=== PATIENT | female | born 1975 | race Caucasian/White ===

== ENCOUNTER 2016-05-12 14:07 | Emergency (ER) | payer MEDICAID ==
[~2016-05-12] VITALS: Wt 68.0 kg
[~2016-05-12 14:07] MED LIST: ACET1TAB40 PO; ACYC800T57 PO; AZIT250T94 PO; CIPR500T4 PO; DICY20TA59 PO; HYDR-3498 PO; HYDR-3720 PO; IBUP-1542 PO; KENC1 TOP; NAPR-260 PO; PHEN177S43 MT; PROM5SYR2 PO; RANI150T9 PO; ULT50 PO
[2016-05-12] MEDS ORDERED: BACTDS PO (16:24)
[2016-05-12] MEDS ORDERED: IBUP-1542 PO (16:24)
[2016-05-12] MEDS ORDERED: CEPH-443 PO (16:24)
[2016-05-12 16:31] VITALS: BP 119/73; PULSE 75; RESP 17; TEMP 98.2
--- NOTE | 2016-05-12 16:36 | ERD ---
ER Documentation Chief Complaint Date/Time DATE: 05/12/16 TIME: 16:27 Chief Complaint LEFT FINGER INSECT BITE RED AND SWOLLEN .NO FEVERS HPI 41-year-old female with no significant past medical history presents to the ED complaining of a insect bite that occurred on the dorsal aspect of her left fourth finger that started 5 days ago. States that she was trying to move boxes outside and is unsure what exactly bit her. States that it started to become swollen and red. States that hurts to move her left finger. Reports that she has been applying warm compresses. Denies any fever, chills, abdominal pain, nausea, vomiting, loss of sensation. Denies any exposure to pets, use of creams or detergents. ROS All systems reviewed and are negative except as per history of present illness. Medications Home Meds Active Scripts Hydrocodone/Acetaminophen ([place] 5-325 Tablet) 1 Each Tablet, 1 TAB PO Q6H Y for PAIN, #20 TAB Prov:THOMAS MOORE PA-C 05/14/16 Sulfamethoxazole-Trimethoprim* (Bactrim* DS) 800-160 Mg Tab, 1 TAB PO BID for 7 Days, TAB Prov:RANJIT DEL VALLE PA-C 05/12/16 Cephalexin* (Keflex*) 500 Mg Capsule, 500 MG PO QID for 7 Days, CAP Prov:RANJIT DEL VALLE PA-C 05/12/16 Ibuprofen* (Motrin*) 600 Mg Tab, 600 MG PO Q6, #30 TAB Prov:RANJIT DEL VALLE PA-C 05/12/16 Promethazine HCl/Codeine (Prometh-Codein 6.25-10 mg/5 ml) 5 Ml Syrup, 5 ML PO Q8 , #8 OZ Prov:VIVIANE LIEBERMAN DO 04/15/16 Phenol* (Chloraseptic* [place]) 177 Ml [place].pump, 2 SPRAY MT Q2H Y for SORE THROAT, #1 BOTTLE Prov:LUISANAVIVIANE 04/15/16 Naproxen* (Naprosyn*) 500 Mg Tablet, 500 MG PO BID Y for PAIN AND/OR INFLAMMATION, #15 TAB Prov:LUISANAVIVIANE DO 04/15/16 Tramadol HCl (Tramadol HCl) 50 Mg Tablet, 50 MG PO Q4 Y for PAIN, #20 TAB Prov:DOMINICK COLMENARES MD 11/23/15 Ibuprofen* (Motrin*) 600 Mg Tab, 600 MG PO Q6, #20 TAB Prov:DOMINICK COLMENARES MD 11/23/15 Azithromycin* (Zithromax*) 250 Mg Tablet, 250 MG PO .ZPACK DIRECTED, #6 TAB TAKE 500 MG (2 TABS) THE FIRST DAY THEN 250 MG (1 TAB) DAYS 2-5 Prov:SANTOS LU PA-C 09/25/15 Hydrocodone Bit-Acetaminophen* ([place]*) 5-325 Mg Tab, 1 TAB PO Q6 Y for PAIN, # 10 TAB Prov:SANTOS LU PA-C 09/25/15 Hydrocodone Bit-Acetaminophen* ([place]*) 7.5-325 Tablet, 1 TAB PO Q4H Y for PAIN , #20 TAB Prov:YASMINE GARCIA DO 09/22/15 Ranitidine Hcl* (Zantac*) 150 Mg Tablet, 150 MG PO BID Y for EPIGASTRIC PAIN, # 30 TAB Prov:YASMINE GARCIA DO 09/22/15 Dicyclomine Hcl* (Bentyl*) 20 Mg Tablet, 20 MG PO QID, #30 TAB Prov:YASMINE GARCIA DO 09/22/15 Ciprofloxacin Hcl* (Ciprofloxacin Hcl*) 500 Mg Tablet, 500 MG PO BID for 7 Days , TAB Prov:MEDINA HOLLAND PA-C 03/27/15 Triamcinolone Acetonide (Triamcinolone Acetonide) 0.1% - 15 Gm Cream.gm., 1 APPLIC TOP TID for 7 Days, TUB Prov:DOMINICK COLMENARES MD 01/01/15 Acyclovir* (Zovirax*) 800 Mg Tablet, 800 MG PO TID for 7 Days, TAB Prov:DOMINICK COLMENARES MD 01/01/15 Acetaminophen-Codeine* (Acetaminophen-Cod #3*) 300-30 Mg Tab, 1 TAB PO Q4H Y for PAIN, #14 TAB Prov:DOMINICK COLMENARES MD 01/01/15 Allergies Allergies: Coded Allergies: No Known Allergy (Verified , 04/15/16) PMhx/Soc History of Surgery: Yes (POLYPS) Anesthesia Reaction: No Hx Neurological Disorder: No Hx Respiratory Disorders: No Hx Cardiac Disorders: No Hx Psychiatric Problems: No Hx Miscellaneous Medical Probl: Yes (FIBROIDS) Hx Alcohol Use: No Hx Substance Use: No Hx Tobacco Use: No Smoking Status: Never smoker Physical Exam Vitals Vital Signs Date Time Temp Pulse Resp B/P Pulse Ox O2 Delivery O2 Flow Rate FiO2 05/12/16 16:31 98.2 75 17 119/73 100 Room Air 05/12/16 14:18 98.2 82 20 134/81 99 Physical Exam Const: [id number], well-nourished. In no acute distress. Head: Atraumatic, normocephalic Eyes: Normal Conjunctiva without injection ENT: Normal external ear, nose and mouth. Neck: Full range of motion. No meningismus. Resp: Clear to auscultation bilaterally. No wheezing, rhonchi, rales, or crackles. No accessory muscle use. No retractions. Cardio: Regular rate and rhythm, no murmurs Skin: No petechiae or rashes. Slight tenderness to palpation of the insect bite noted on the dorsal aspect in between the MCP and PIP joint of the left fourth finger. No fluctuance or induration noted. Slightly warm to touch and erythematous. No lymphatic streaking. Back: No midline tenderness. No CVA tenderness. Ext: No cyanosis, or edema. No tenderness to palpation of the PIP, DIP, MCP joints of the bilateral hands. Cap refill less than 2 seconds. Distal pulses intact bilaterally. Neur: Awake and alert. Normal gait and coordination. Muscle strength 5/5. Sensation intact bilaterally. Psych: Normal Mood and Affect Procedures/MDM 41-year-old female with no significant past medical history presents the ED complaining of an infected insect bite that occurred in between her fourth middle finger. Patient is afebrile and nontoxic-appearing. Patient has normal vital signs. Patient's insect bite is likely infected however there is no current abscess noted. There is no fluctuance or induration. There is slight erythema surrounding the area. Patient is appropriate for outpatient management. Low suspicion for allergic contact dermatitis, urticaria, cutaneous candidiasis, eczema, scabies, tinea infection, erythema multiforme, SJS, TEN, sepsis, cellulitis, necrotizing fascitis, or other emergent conditions. Discharge medications: Bactrim, Keflex, Ibuprofen Follow up with primary care physician in 1-2 days. Instructed patient to return to the ED sooner for any worsening symptoms. Patient's questions were answered. Patient understood and agreed with discharge plan. Patient discharged stable. Departure Diagnosis: Primary Impression: Infected insect bite of finger Encounter type: initial encounter Qualified Code: S60.469A - Infected insect bite of finger, initial encounter Condition: Stable Patient Instructions: Insect Sting/Bite, Infected Referrals: [facility] YOU HAVE RECEIVED A MEDICAL SCREENING EXAM AND THE RESULTS INDICATE THAT YOU DO NOT HAVE A CONDITION THAT REQUIRES URGENT TREATMENT IN THE EMERGENCY DEPARTMENT. FURTHER EVALUATION AND TREATMENT OF YOUR CONDITION CAN WAIT UNTIL YOU ARE SEEN IN YOUR DOCTORS OFFICE WITHIN THE NEXT 1-2 DAYS. IT IS YOUR RESPONSIBILITY TO MAKE AN APPOINTMENT FOR FOLOW-UP CARE. IF YOU HAVE A PRIMARY DOCTOR --you should call your primary doctor and schedule an appointment IF YOU DO NOT HAVE A PRIMARY DOCTOR YOU CAN CALL OUR PHYSICIAN REFERRAL HOTLINE AT IF YOU CAN NOT AFFORD TO SEE A PHYSICIAN YOU CAN CHOSE FROM THE FOLLOWING [facility] [address] [facility]. [facility] [address] [facility]. [facility] [address] [facility] [address] [facility] [address] [facility]. [facility]. [address] [facility]. [facility] YOU HAVE RECEIVED A MEDICAL SCREENING EXAM AND THE RESULTS INDICATE THAT YOU DO NOT HAVE A CONDITION THAT REQUIRES URGENT TREATMENT IN THE EMERGENCY DEPARTMENT. FURTHER EVALUATION AND TREATMENT OF YOUR CONDITION CAN WAIT UNTIL YOU ARE SEEN IN YOUR DOCTORS OFFICE WITHIN THE NEXT 1-2 DAYS. IT IS YOUR RESPONSIBILITY TO MAKE AN APPOINTMENT FOR FOLOW-UP CARE. IF YOU HAVE A PRIMARY DOCTOR --you should call your primary doctor and schedule and appointment IF YOU DO NOT HAVE A PRIMARY DOCTOR YOU CAN CALL OUR PHYSICIAN REFERRAL HOTLINE AT . IF YOU CAN NOT AFFORD TO SEE A PHYSICIAN YOU CAN CHOSE FROM THE FOLLOWING [facility]: [facility] [address] [place] [address] [facility] [address] [place] [address] [facility] + [facility] [address] [place] [address] [facility]CIALT[facility] Additional Instructions: Seguimiento con mdico de diamante en 2 calderon para yesenia revisin de la herida Regrese a estas instalaciones si no se mejora angelica esperbamos o angelica le dijimos. RANJIT DEL VALLE PA-C May 12, 2016 16:36
== END 2016-05-12 16:33 | disposition home or self-care (01) ==
LOC: FTE 14:07
DX: S60.465A Insect bite (nonvenomous) of left ring finger, initial encounter (principal); W57.XXXA Bitten or stung by nonvenomous insect and other nonvenomous arthropods, initial encounter; Y92.9 Unspecified place or not applicable
CPT/HCPCS: 99284

== ENCOUNTER 2016-05-14 14:47 | Emergency (ER) | payer MEDICAID ==
[~2016-05-14] VITALS: Ht 162.6 cm; Wt 66.0 kg
[~2016-05-14 14:47] MED LIST changes: +BACTDS PO; +CEPH-443 PO
[2016-05-14 15:05] VITALS: Ht 162.6 cm; Wt 66.0 kg
[2016-05-14] MEDS ORDERED: HYDR-906 PO (18:01)
--- NOTE | 2016-05-14 18:06 | ERD ---
ER Documentation Chief Complaint Date/Time DATE: 05/14/16 TIME: 18:03 Chief Complaint re check for insect bite HPI Patient is a 41-year-old female who is here for an abscess on her left fourth digit. She was seen here 2 days ago was given antibiotics however it has not gotten any better. She denies any fever bleeding or drainage. Pain 10 throbbing in the finger. Denies any numbness or tingling. ROS All systems reviewed and are negative except as per history of present illness. Medications Home Meds Active Scripts Hydrocodone/Acetaminophen ([place] 5-325 Tablet) 1 Each Tablet, 1 TAB PO Q6H Y for PAIN, #20 TAB Prov:THOMAS MOORE PA-C 05/14/16 Sulfamethoxazole-Trimethoprim* (Bactrim* DS) 800-160 Mg Tab, 1 TAB PO BID for 7 Days, TAB Prov:RANJIT DEL VALLE PA-C 05/12/16 Cephalexin* (Keflex*) 500 Mg Capsule, 500 MG PO QID for 7 Days, CAP Prov:RANJIT DEL VALLE PA-C 05/12/16 Ibuprofen* (Motrin*) 600 Mg Tab, 600 MG PO Q6, #30 TAB Prov:RANJIT DEL VALLE PA-C 05/12/16 Promethazine HCl/Codeine (Prometh-Codein 6.25-10 mg/5 ml) 5 Ml Syrup, 5 ML PO Q8 , #8 OZ Prov:VIVIANE LIEBERMAN DO 04/15/16 Phenol* (Chloraseptic* [place]) 177 Ml [place].pump, 2 SPRAY MT Q2H Y for SORE THROAT, #1 BOTTLE Prov:VIVIANE LIEBERMAN DO 04/15/16 Naproxen* (Naprosyn*) 500 Mg Tablet, 500 MG PO BID Y for PAIN AND/OR INFLAMMATION, #15 TAB Prov:VIVIANE LIEBERMAN DO 04/15/16 Tramadol HCl (Tramadol HCl) 50 Mg Tablet, 50 MG PO Q4 Y for PAIN, #20 TAB Prov:DOMINICK COLMENARES MD 11/23/15 Ibuprofen* (Motrin*) 600 Mg Tab, 600 MG PO Q6, #20 TAB Prov:DOMINICK COLMENARES MD 11/23/15 Azithromycin* (Zithromax*) 250 Mg Tablet, 250 MG PO .GAURANG DIRECTED, #6 TAB TAKE 500 MG (2 TABS) THE FIRST DAY THEN 250 MG (1 TAB) DAYS 2-5 Prov:SANTOS LU PA-C 09/25/15 Hydrocodone Bit-Acetaminophen* ([place]*) 5-325 Mg Tab, 1 TAB PO Q6 Y for PAIN, # 10 TAB Prov:SANTOS LU PA-C 09/25/15 Hydrocodone Bit-Acetaminophen* ([place]*) 7.5-325 Tablet, 1 TAB PO Q4H Y for PAIN , #20 TAB Prov:KERI GARCIASTASHLEY Cohen DO 09/22/15 Ranitidine Hcl* (Zantac*) 150 Mg Tablet, 150 MG PO BID Y for EPIGASTRIC PAIN, # 30 TAB Prov:YASMINE GARCIA AArlene DO 09/22/15 Dicyclomine Hcl* (Bentyl*) 20 Mg Tablet, 20 MG PO QID, #30 TAB Prov:YASMINE GARCIA DO 09/22/15 Ciprofloxacin Hcl* (Ciprofloxacin Hcl*) 500 Mg Tablet, 500 MG PO BID for 7 Days , TAB Prov:MEDINA HOLLAND PA-C 03/27/15 Triamcinolone Acetonide (Triamcinolone Acetonide) 0.1% - 15 Gm Cream.gm., 1 APPLIC TOP TID for 7 Days, TUB Prov:DOMINICK COLMENARES MD 01/01/15 Acyclovir* (Zovirax*) 800 Mg Tablet, 800 MG PO TID for 7 Days, TAB Prov:DOMINICK COLMENARES MD 01/01/15 Acetaminophen-Codeine* (Acetaminophen-Cod #3*) 300-30 Mg Tab, 1 TAB PO Q4H Y for PAIN, #14 TAB Prov:DOMINICK COLMENARES MD 01/01/15 Allergies Allergies: Coded Allergies: No Known Allergy (Verified , 04/15/16) PMhx/Soc Medical and Surgical Hx: pt denies Medical Hx, pt denies Surgical Hx History of Surgery: Yes Anesthesia Reaction: No Hx Neurological Disorder: No Hx Respiratory Disorders: No Hx Cardiac Disorders: No Hx Psychiatric Problems: No Hx Miscellaneous Medical Probl: Yes (FIBROIDS) Hx Alcohol Use: No Hx Substance Use: No Hx Tobacco Use: No Smoking Status: Never smoker FmHx Family History: No diabetes Physical Exam Vitals Vital Signs Date Time Temp Pulse Resp B/P Pulse Ox O2 Delivery O2 Flow Rate FiO2 05/14/16 15:05 98.2 93 19 114/74 98 Physical Exam General: well developed, well nourished, alert, nontoxic, no distress Head: normocephalic, atraumatic Neck: Supple, nontender, no lymphadenopathy, no midline tenderness Respiratory: Clear to auscaultation bilaterally, speaks in full sentences, no use of accesory muscles or labored breathing, no rales, ronchi, or wheezing Cardiovascular: RRR, No murmurs Extremities: moving all extremities normally, normal gait, no edema Skin: Abscess formation on the left fourth digit dorsal surface between the DIP and PIP joints with fluctuance Procedures/MDM 41-year-old female is here with abscess on his finger. The area was cleaned and prepped with Betadine. 1% plain lidocaine was used to anesthetize the finger proximally 2 mL. Small incision using an 11 blade was then made and copious purulent drainage was drained. Patient tolerated the procedure well and there are no complications a she was discharged with prescription for [place] and I recommended she continue to take the antibiotics as prescribed.Recommended this patient follow up with her primary care doctor within 48 hours or return to the emergency room for any worsening of symptoms. However this time I do believe there is suitable for outpatient management. I answered all their questions and they agreed with the plan and were discharged home. Departure Diagnosis: Primary Impression: Abscess Condition: Stable Patient Instructions: Abscess, Incision And Drainage Additional Instructions: Call your primary care doctor TOMORROW for an appointment during the next 1-2 days.See the doctor sooner or return here if your condition worsens before your appointment time. THOMAS MOORE PA-C May 14, 2016 18:06
== END 2016-05-14 18:30 | disposition home or self-care (01) ==
LOC: FTE 14:47
DX: L02.512 Cutaneous abscess of left hand (principal)
CPT/HCPCS: 26010; Z7502

== ENCOUNTER 2016-07-04 09:54 | Emergency (ER) | payer MEDICAID ==
[~2016-07-04] VITALS: Wt 63.0 kg
[~2016-07-04 09:54] MED LIST changes: +HYDR-906 PO; +TRAM50TA2 PO; -ULT50 PO
[2016-07-04] MEDS ORDERED: ONDANSETRON 4 MG INJ IV STA (11:52)
[2016-07-04] MEDS ORDERED: morphine 4 MG/ML VIAL IV STA (11:52)
[2016-07-04 12:14] LABS: ADD SCAN DIFF NO
[2016-07-04 12:24] LABS: BASOPHILS % 0.4 % (0.0-2.0); EOSINOPHILS # 0.1 10^3/ul (0.0-0.5); EOSINOPHILS % 0.9 % (0.0-7.0); HEMATOCRIT 39.2 % (37.0-47.0); HEMOGLOBIN 13.3 g/dl (12.0-16.0); LYMPHOCYTES # 1.6 10^3/ul (0.8-2.9); LYMPHOCYTES % 30.2 % (15.0-51.0); MEAN CORPUSCULAR HEMOGLOBIN 32.2 pg (29.0-33.0); MEAN CORPUSCULAR HGB CONC 33.9 g/dl (32.0-37.0); MEAN CORPUSCULAR VOLUME 94.9 fl (82.0-101.0); MEAN PLATELET VOLUME 11.6 fl (7.4-10.4); MONOCYTE # 0.4 10^3/ul (0.3-0.9); MONOCYTES % 6.7 % (0.0-11.0); NEUTROPHIL # 3.3 10^3/ul (1.6-7.5); NEUTROPHILS % 61.4 % (39.0-77.0); PLATELET COUNT 198 10^3/UL (140-415); RED BLOOD COUNT 4.13 10^6/ul (4.20-5.40); RED CELL DISTRIBUTION WIDTH 12.5 % (11.5-14.5); WHITE BLOOD COUNT 5.4 10^3/ul (4.8-10.8)
[2016-07-04 12:28] LABS: ALBUMIN 4.1 g/dl (3.3-4.9)
[2016-07-04 12:29] LABS: POTASSIUM 3.7 mmol/L (3.5-5.1)
[2016-07-04 12:31] LABS: BILIRUBIN,INDIRECT 0.3 mg/dl (0-1.1); BILIRUBIN,TOTAL 0.3 mg/dl (0.2-1.3); CREATININE 0.61 mg/dl (0.44-1.00)
[2016-07-04 12:32] LABS: ALBUMIN/GLOBULIN RATIO 1.24; CALCIUM 8.9 mg/dl (8.4-10.2); TOTAL PROTEIN 7.4 g/dl (6.1-8.1)
--- NOTE | 2016-07-04 12:35 | ERD ---
ER Documentation Chief Complaint Date/Time DATE: 07/04/16 TIME: 12:33 Chief Complaint RIGHT UPPER QUAD ABD PAIN FOR 3 DAYS. N/V. NO DIARRHEA HPI 41-year-old female complains of right-sided flank pain that radiates to right upper quadrant for the past 3 days. She states that she has had generalized fatigue. Reports nausea however no vomiting. Denies fevers or chills. ROS All systems reviewed and are negative except as per history of present illness. Medications Home Meds Active Scripts Tramadol HCl (Tramadol HCl) 50 Mg Tablet, 50 MG PO Q4 Y for PAIN, #10 TAB Prov:SANTOS LU PA-C 07/04/16 Hydrocodone/Acetaminophen ([place] 5-325 Tablet) 1 Each Tablet, 1 TAB PO Q6H Y for PAIN, #20 TAB Prov:THOMAS MOORE PA-C 05/14/16 Sulfamethoxazole-Trimethoprim* (Bactrim* DS) 800-160 Mg Tab, 1 TAB PO BID for 7 Days, TAB Prov:RANJIT DEL VALLE PA-C 05/12/16 Cephalexin* (Keflex*) 500 Mg Capsule, 500 MG PO QID for 7 Days, CAP Prov:RANJIT DEL VALLE PA-C 05/12/16 Ibuprofen* (Motrin*) 600 Mg Tab, 600 MG PO Q6, #30 TAB Prov:RANJIT DEL VALLE PA-C 05/12/16 Promethazine HCl/Codeine (Prometh-Codein 6.25-10 mg/5 ml) 5 Ml Syrup, 5 ML PO Q8 , #8 OZ Prov:VIVIANE LIEBERMAN DO 04/15/16 Phenol* (Chloraseptic* [place]) 177 Ml [place].pump, 2 SPRAY MT Q2H Y for SORE THROAT, #1 BOTTLE Prov:VIVIANE LIEBERMAN DO 04/15/16 Naproxen* (Naprosyn*) 500 Mg Tablet, 500 MG PO BID Y for PAIN AND/OR INFLAMMATION, #15 TAB Prov:VIVIANE LIEBERMAN DO 04/15/16 Tramadol HCl (Tramadol HCl) 50 Mg Tablet, 50 MG PO Q4 Y for PAIN, #20 TAB Prov:DOMINICK COLMENARES MD 11/23/15 Ibuprofen* (Motrin*) 600 Mg Tab, 600 MG PO Q6, #20 TAB Prov:DOMINICK COLMENARES MD 11/23/15 Azithromycin* (Zithromax*) 250 Mg Tablet, 250 MG PO .BRANDICK DIRECTED, #6 TAB TAKE 500 MG (2 TABS) THE FIRST DAY THEN 250 MG (1 TAB) DAYS 2-5 Prov:SANTOS LU PA-C 09/25/15 Hydrocodone Bit-Acetaminophen* ([place]*) 5-325 Mg Tab, 1 TAB PO Q6 Y for PAIN, # 10 TAB Prov:ASNTOS LU PA-C 09/25/15 Hydrocodone Bit-Acetaminophen* ([place]*) 7.5-325 Tablet, 1 TAB PO Q4H Y for PAIN , #20 TAB Prov:YASMINE GARCIA DO 09/22/15 Ranitidine Hcl* (Zantac*) 150 Mg Tablet, 150 MG PO BID Y for EPIGASTRIC PAIN, # 30 TAB Prov:YASMINE GARCIA DO 09/22/15 Dicyclomine Hcl* (Bentyl*) 20 Mg Tablet, 20 MG PO QID, #30 TAB Prov:YASMINE GARCIA DO 09/22/15 Ciprofloxacin Hcl* (Ciprofloxacin Hcl*) 500 Mg Tablet, 500 MG PO BID for 7 Days , TAB Prov:MEDINA HOLLAND PA-C 03/27/15 Triamcinolone Acetonide (Triamcinolone Acetonide) 0.1% - 15 Gm Cream.gm., 1 APPLIC TOP TID for 7 Days, TUB Prov:DOMINICK COLMENARES MD 01/01/15 Acyclovir* (Zovirax*) 800 Mg Tablet, 800 MG PO TID for 7 Days, TAB Prov:DOMINICK COLMENARES MD 01/01/15 Acetaminophen-Codeine* (Acetaminophen-Cod #3*) 300-30 Mg Tab, 1 TAB PO Q4H Y for PAIN, #14 TAB Prov:DOMINICK COLMENARES MD 01/01/15 Allergies Allergies: Coded Allergies: No Known Allergy (Verified , 07/04/16) PMhx/Soc History of Surgery: Yes (POLYPS REMOVED 2015) Anesthesia Reaction: No Hx Neurological Disorder: No Hx Respiratory Disorders: No Hx Cardiac Disorders: No Hx Psychiatric Problems: No Hx Miscellaneous Medical Probl: Yes (FIBROIDS) Hx Alcohol Use: No Hx Substance Use: No Hx Tobacco Use: No Smoking Status: Never smoker Physical Exam Vitals Vital Signs Date Time Temp Pulse Resp B/P Pulse Ox O2 Delivery O2 Flow Rate FiO2 07/04/16 09:57 98.9 79 21 145/67 98 Physical Exam General: Well-developed, well-nourished. The patient appears in no acute distress. HEENT: Head is normocephalic, atraumatic. No scleral icterus. Neck: Supple. Nontender. Lungs: Clear to auscultation. Normal air movement. Heart: Regular rate and rhythm. S1 and S2 are normal. No murmurs, gallops, or rubs. Abdomen: Soft, nontender, nondistended. Bowel sounds are normoactive. Back: Positive right-sided CVA tenderness Extremities: No clubbing or cyanosis. Normal pulses. Moving extremities x 4. No weakness. Neurologic: Alert and oriented 3. No focal deficits. Skin: Normal turgor. No rash or lesions. Result Diagram: 07/04/16 1200 07/04/16 1200 Results 24 hrs Laboratory Tests Test 07/04/16 12:00 Alanine Aminotransferase (ALT/SGPT) 31IU/L Albumin 4.1g/dl Albumin/Globulin Ratio 1.24 Alkaline Phosphatase 95IU/L Anion Gap 16 Aspartate Amino Transf (AST/SGOT) 25IU/L Basophils # 0.010^3/ul Basophils % 0.4% Blood Urea Nitrogen 10mg/dl Calcium Level 8.9mg/dl Carbon Dioxide Level 29mmol/L Chloride Level 104mmol/L Creatinine 0.61mg/dl Direct Bilirubin 0.00mg/dl Eosinophils # 0.110^3/ul Eosinophils % 0.9% Globulin 3.30g/dl Glucose Level 86mg/dl Hematocrit 39.2% Hemoglobin 13.3g/dl Indirect Bilirubin 0.3mg/dl Lipase 84U/L Lymphocytes # 1.610^3/ul Lymphocytes % 30.2% Mean Corpuscular Hemoglobin 32.2pg Mean Corpuscular Hemoglobin Concent 33.9g/dl Mean Corpuscular Volume 94.9fl Mean Platelet Volume 11.6fl Monocytes # 0.410^3/ul Monocytes % 6.7% Neutrophils # 3.310^3/ul Neutrophils % 61.4% Nucleated Red Blood Cells # 0.010^3/ul Nucleated Red Blood Cells % 0.0/100WBC Platelet Count 84002^3/UL Potassium Level 3.7mmol/L Red Blood Count 4.1310^6/ul Red Cell Distribution Width 12.5% Sodium Level 145mmol/L Total Bilirubin 0.3mg/dl Total Protein 7.4g/dl Urine Bilirubin NEGATIVE Urine Clarity CLEAR Urine Color LT. YELLOW Urine Glucose NEGATIVE% Urine Hemoglobin NEGATIVE Urine Ketones NEGATIVE Urine Leukocyte Esterase NEGATIVE Urine Nitrite NEGATIVE Urine Test NEGATIVE Urine Specific [place] 1.010 Urine Total Protein NEGATIVE Urine Urobilinogen 0.2 E.U./dL Urine pH 7.0 White Blood Count 5.410^3/ul Current Medications Medications (Trade) Dose Ordered Sig/Tessie Route PRN Reason Start Time Stop Time Status Last Admin Dose Admin Morphine Sulfate (morphine) 4 mg ONCE STAT IV 07/04/16 11:52 07/04/16 11:55 DC 07/04/16 12:10 Ondansetron HCl (Zofran Inj) 4 mg ONCE STAT IV 07/04/16 11:52 07/04/16 11:55 DC 07/04/16 12:10 PROCEDURE: CT Abdomen and Pelvis without contrast. CLINICAL INDICATION: Right upper quadrant pain radiating to back with bloating. TECHNIQUE: CT scan of the abdomen and pelvis without contrast was performed on a multidetector high-resolution CT scanner. The patient was scanned without intravenous contrast. Coronal and sagittal reformatted images were obtained from the axial source images. Images were reviewed on a high-resolution PACS workstation. The total exam CTDI equals 12.87 mGy and the total exam DLP equals 726.36 mGy-cm. One or more of the following dose reduction techniques were used: Automated exposure control. Adjustment of the mA and/or kV according to patient size. Use of iterative reconstruction technique. COMPARISON: CT abdomen and pelvis 11/23/2015 FINDINGS: CT abdomen: The lung bases are clear. The heart size is normal, without pericardial thickening or effusion. The liver is normal in size and density without focal mass or intrahepatic biliary dilatation. The spleen is normal in size and homogeneous in density. The stomach is partially collapsed, but is grossly unremarkable. The pancreas as visualized is normal. The gallbladder and biliary tree are unremarkable and there is no evidence for biliary dilatation. The adrenal glands are symmetric and normal. The kidneys are symmetrically unremarkable as well. No renal calculus or obstructive uropathy or mass lesion is seen. The aorta is of normal caliber. There is no retroperitoneal lymphadenopathy. The garry hepatis region is clear. The bowel and mesentery, as visualized, are equally unremarkable. CT pelvis: The small bowel loops situated within the pelvis are unremarkable. There is a normal appendix. There is slightly enlarged lobulated uterus in keeping with a fibroid uterus. The pelvic sidewalls and inguinal regions are clear. The sigmoid colon and rectum are unremarkable. No mass, lymphadenopathy, or free fluid is seen. No acute inflammation is seen. No osteolytic or osteoblastic lesion is detected. IMPRESSION: 1. No mass, lymphadenopathy, or focal acute inflammatory process is identified. 2. Normal appendix. 3. Myomatous uterus. RPTAT: BB .Dillon Fitzgerald MD, MD Date Time Electronically viewed and signed by .Dillon Fitzgerald MD, MD on 07/04/2016 14:59 Procedures/MDM ED course: Patient had labs and urine obtained, IV line was established and she was given morphine 4 mg and Zofran 4 mg IV. MDM: 41-year-old female presents with right-sided flank pain, patient's workup was unremarkable. There is no leukocytosis, no electric abnormalities and urine was negative for infection. CT abdomen and pelvis was followed up, no evidence of kidney stones, kidney abscess, lung abscess, acute hepatobiliary disease, no evidence of acute appendicitis. Patient's abdominal pain was advised to be rechecked in 8-12 hours. She should return sooner for any worsening or new symptoms. Departure Diagnosis: Primary Impression: Abdominal pain Condition: SANTOS Choi PA-C Jul 04, 2016 12:34
[2016-07-04 12:44] LABS: ADD UMIC NO; URINE BILIRUBIN (Dip) NEGATIVE (NEGATIVE); URINE BLOOD (Dip) NEGATIVE (NEGATIVE); URINE COLOR LT. YELLOW (YELLOW); URINE GLUCOSE (Dip) NEGATIVE (NEGATIVE); URINE KETONES (Dip) NEGATIVE (NEGATIVE); URINE LEUKOCYTE ESTERASE (Dip) NEGATIVE (NEGATIVE); URINE NITRITE (Dip) NEGATIVE (NEGATIVE); URINE TOTAL PROTEIN (Dip) NEGATIVE (NEGATIVE); URINE UROBILINOGEN (Dip) 0.2 E.U./dL (0.1-1.0)
--- NOTE | 2016-07-04 14:59 | RADRPT ---
PROCEDURE: CT Abdomen and Pelvis without contrast. CLINICAL INDICATION: Right upper quadrant pain radiating to back with bloating. TECHNIQUE: CT scan of the abdomen and pelvis without contrast was performed on a multidetector hig h-resolution CT scanner. The patient was scanned without intravenous contrast. Coronal and sagittal reformatted images were obtained from the axial source images. Images were reviewed on a high-resol [employer] PACS workstation. The total exam CTDI equals 12.87 mGy and the total exam DLP equals 726.36 mG y-cm. One or more of the following dose reduction techniques were used: Automated exposure control. Adjustment of the mA and/or kV according to patient size. Use of iterative reconstruction technique. COMPARISON: CT abdomen and pelvis 11/23/2015 FINDINGS: CT abdomen: The lung bases are clear. The heart size is normal, without pericardial thickening or effusion. Th e liver is normal in size and density without focal mass or intrahepatic biliary dilatation. The sp yvonne is normal in size and homogeneous in density. The stomach is partially collapsed, but is gross ly unremarkable. The pancreas as visualized is normal. The gallbladder and biliary tree are unrema rkable and there is no evidence for biliary dilatation. The adrenal glands are symmetric and normal . The kidneys are symmetrically unremarkable as well. No renal calculus or obstructive uropathy or mass lesion is seen. The aorta is of normal caliber. There is no retroperitoneal lymphadenopathy. The garry hepatis oscar on is clear. The bowel and mesentery, as visualized, are equally unremarkable. CT pelvis: The small bowel loops situated within the pelvis are unremarkable. There is a normal appendix. There is slightly enlarged lobulated uterus in keeping with a fibroid uterus. The pelvic sidewalls and i nguinal regions are clear. The sigmoid colon and rectum are unremarkable. No mass, lymphadenopathy , or free fluid is seen. No acute inflammation is seen. No osteolytic or osteoblastic lesion is det ected. IMPRESSION: 1. No mass, lymphadenopathy, or focal acute inflammatory process is identified. 2. Normal appendix. 3. Myomatous uterus. RPTAT: BB .Dillon Fitzgerald MD, MD Date Time Electronically viewed and signed by .Dillon Fitzgerald MD, MD on 07/04/2016 14:59 .O/
[2016-07-04] MEDS ORDERED: TRAM50TA2 PO (15:11)
[2016-07-04 16:03] VITALS: BP 126/64; PULSE 57; RESP 16; TEMP 97.5
== END 2016-07-04 16:09 | disposition home or self-care (01) ==
LOC: FTE 09:54
DX: R10.9 Unspecified abdominal pain (principal); R11.0 Nausea
CPT/HCPCS: 36415; 74176; 80053; 81003; 83690; 84703; 85025; 96374; 96375; J2270; J2405; Z7502

== ENCOUNTER 2017-07-31 18:52 | Emergency (ER) | END 2017-07-31 21:54 | disposition home or self-care (01) ==

== ENCOUNTER 2018-01-08 19:30 | Emergency (ER) | END 2018-01-08 19:42 | disposition left against medical advice (07) ==

== ENCOUNTER 2018-01-09 05:30 | Emergency (ER) | END 2018-01-09 07:40 | disposition home or self-care (01) ==

== ENCOUNTER 2018-08-21 05:31 | Inpatient (IN) | payer OTHER ==
[~2018-08-21] VITALS: Ht 160 cm; Wt 65.5 kg
[2018-08-21] VITALS (27 sets, daily range): BP systolic 101–134; BP diastolic 54–80; PULSE 70–98; RESP 10–20; Ht 160 cm; Wt 65.5 kg
[~2018-08-21 05:31] MED LIST changes: +ACYC800T5 PO; -ACYC800T57 PO; +AZIT250T PO; -AZIT250T94 PO; +FIORICET PO; +HYDR-4011 PO; -HYDR-906 PO; -KENC1 TOP; -NAPR-260 PO; +NAPR-985 PO; +RANI150T35 PO; -RANI150T9 PO; +TRIA15CR55 TOP
[2018-08-21] MEDS ORDERED: ACETAMINOPHEN 500 MG TAB PO ONE (06:30)
--- NOTE | 2018-08-21 07:09 | PREAC ---
Date/Time of Note Date/Time of Note DATE: 08/21/18 TIME: 07:07 Anesthesia Eval and Record Evaluation Time Pre-Procedure Interview DATE: 08/21/18 TIME: 07:07 Age 43 Sex female NPO: 8 hrs Preoperative diagnosis fibroids, dyspareunia, leiomyoma of uterus Planned procedure total abdominal hysterectomy Past Medical History Past Medical History: None Surgery & Anesthesia Issues No known issue Meds Anticoagulation: No Beta Guillermo within 24 hr: No Reason Beta Guillermo not given: Pt. not on B-Guillermo Discontinued Scripts Acetamin/Butalbital/Caffeine* (Fioricet*) [id number] Tab, 1 TAB PO Q6H PRN for PAIN, #30 TAB Prov:MEDINA HOLLAND PA-C 01/09/18 Ibuprofen* (Motrin*) 600 Mg Tab, 600 MG PO Q6, #30 TAB Prov:RANJIT DEL VALLE PA-C 07/31/17 Tramadol HCl (Tramadol HCl) 50 Mg Tablet, 50 MG PO Q4 PRN for PAIN, #10 TAB Prov:SANTOS LU PA-C 07/04/16 Hydrocodone/Acetaminophen ([place] 5-325 Tablet) 1 Each Tablet, 1 TAB PO Q6H PRN for PAIN, #20 TAB Prov:THOMAS MOORE PA-C 05/14/16 Sulfamethoxazole-Trimethoprim* (Bactrim* DS) 800-160 Mg Tab, 1 TAB PO BID for 7 Days, TAB Prov:RANJIT DEL VALLE PA-C 05/12/16 Cephalexin* (Keflex*) 500 Mg Capsule, 500 MG PO QID for 7 Days, CAP Prov:RANJIT DEL VALLE PA-C 05/12/16 Ibuprofen* (Motrin*) 600 Mg Tab, 600 MG PO Q6, #30 TAB Prov:ARNJIT DEL VALLE PA-C 05/12/16 Promethazine HCl/Codeine (Prometh-Codein 6.25-10 mg/5 ml) 5 Ml Syrup, 5 ML PO Q8, #8 OZ Prov:VIVIANE LIEBERMAN DO 04/15/16 Phenol* (Chloraseptic* [place]) 177 Ml [place].pump, 2 SPRAY MT Q2H PRN for SORE THROAT, #1 BOTTLE Prov:VIVIANE LIEBERMAN DO 04/15/16 Naproxen* (Naprosyn*) 500 Mg Tablet, 500 MG PO BID PRN for PAIN AND/OR INFLAMMATION, #15 TAB Prov:VIVIANE LIEBERMAN DO 04/15/16 Tramadol HCl (Tramadol HCl) 50 Mg Tablet, 50 MG PO Q4 PRN for PAIN, #20 TAB Prov:DOMINICK COLMENARES MD 11/23/15 Ibuprofen* (Motrin*) 600 Mg Tab, 600 MG PO Q6, #20 TAB Prov:DOMINICK COLMENARES MD 11/23/15 Azithromycin* (Zithromax*) 250 Mg Tablet, 250 MG PO .TomekaPACK DIRECTED, #6 TAB TAKE 500 MG (2 TABS) THE FIRST DAY THEN 250 MG (1 TAB) DAYS 2-5 Prov:SANTOS LU PA-C 09/25/15 Hydrocodone Bit-Acetaminophen* ([place]*) 5-325 Mg Tab, 1 TAB PO Q6 PRN for PAIN, #10 TAB Prov:SANTOS LU PA-C 09/25/15 Hydrocodone Bit-Acetaminophen* ([place]*) 7.5-325 Tablet, 1 TAB PO Q4H PRN for PAIN, #20 TAB Prov:YASMINE GARCIA DO 09/22/15 Ranitidine Hcl* (Zantac*) 150 Mg Tablet, 150 MG PO BID PRN for EPIGASTRIC PAIN, #30 TAB Prov:YASMINE GARCIA DO 09/22/15 Dicyclomine Hcl* (Bentyl*) 20 Mg Tablet, 20 MG PO QID, #30 TAB Prov:YASMINE GARCIA DO 09/22/15 Ciprofloxacin Hcl* (Ciprofloxacin Hcl*) 500 Mg Tablet, 500 MG PO BID for 7 Days, TAB Prov:MEDINA HOLLAND PA-C 03/27/15 Triamcinolone Acetonide (Triamcinolone Acetonide) 0.1% - 15 Gm Cream.gm., 1 APPLIC TOP TID for 7 Days, TUB Prov:DOMINICK COLMENARES MD 01/01/15 Acyclovir* (Zovirax*) 800 Mg Tablet, 800 MG PO TID for 7 Days, TAB Prov:DOMINICK COLMENARES MD 9/10/15 Acetaminophen-Codeine* (Acetaminophen-Cod #3*) 300-30 Mg Tab, 1 TAB PO Q4H PRN for PAIN, #14 TAB Prov:DOMINICK COLMENARES MD 01/01/15 Meds reviewed: Yes Allergies Coded Allergies: No Known Allergy (Verified , 08/21/18) Allergies Reviewed: Yes Labs/Studies Labs Reviewed: Reviewed by anesthesiologist Blood Bank Test 08/21/18 06:09 Blood Product Summary Counts test: Negative Pre-procedure Exam Airway: Adequate mouth opening, Adequate thyromental dist Mallampati: Mallampati II Teeth: Normal (missing molars) Lung: Normal Heart: Normal ASA Physical Status ASA physical status: 1 Emergency: None Planned Anesthetic General/MAC: ETT Pre-operative Attestations Prior to commencing anesthesia and surgery, the patient was re-evaluated, there was verification of: *The patient's identity *The results of appropriate recent lab work and preoperative vital signs *The above evaluation not changing prior to induction *Anesthetic plan, risk benefits, alternative and complications discussed with patient/family; questions answered; patient/family understands, accepts and wishes to proceed. BETHANY HAHN Aug 21, 2018 07:09
[2018-08-21] MEDS ORDERED: FENTAnyl 50 MCG/ML VIAL ONE ×2 (07:26→09:37)
[2018-08-21] MEDS ORDERED: MIDAZOLAM 1 MG/ML 2 ML INJ ONE (07:26)
--- NOTE | 2018-08-21 07:28 | HPN ---
Date/Time of Note Date/Time of Note DATE: 08/21/18 TIME: 07:28 Interval H&P Admission Note Pt. seen H&P reviewed: No system changes KING JULES MD Aug 21, 2018 07:28
[2018-08-21] MEDS ORDERED: LABETALOL HCL 20MG INJ IV PRN (07:30)
[2018-08-21] MEDS ORDERED: FENTAnyl 50 MCG/ML VIAL IV PRN ×2 (07:30)
[2018-08-21] MEDS ORDERED: ALBUTEROL 0.083% (NEB) 2.5 MG/3 ML AMP HHN PRN (07:30)
[2018-08-21] MEDS ORDERED: OXYCODONE/ACETAMINOPHEN (5/325) TAB PO PRN ×3 (07:30→18:30)
[2018-08-21] MEDS ORDERED: MEPERIDINE 25 MG INJ IV PRN (07:30)
[2018-08-21] MEDS ORDERED: HYDROmorphONE 1 MG/5 ML IV SYRINGE IV PRN ×3 (07:30)
[2018-08-21] MEDS ORDERED: morphine (1 MG/ML) 10ML SYRINGE IV PRN ×2 (07:30)
[2018-08-21] MEDS ORDERED: DIPHENHYDRAMINE 50 MG INJ IV PRN (07:30)
[2018-08-21] MEDS ORDERED: ONDANSETRON 4 MG INJ IV PRN ×2 (07:30→18:30)
[2018-08-21] MEDS ORDERED: ONDANSETRON 4 MG INJ ONE (07:42)
[2018-08-21] MEDS ORDERED: PROPOFOL 40 ML ONE (07:42)
[2018-08-21] MEDS ORDERED: LIDOCAINE 2% (SDV) 5 ML INJ ONE (07:43)
[2018-08-21] MEDS ORDERED: FAMOTIDINE 20 MG INJ ONE (07:43)
[2018-08-21] MEDS ORDERED: DEXAMETHASONE 4 MG/ML 5 ML INJ ONE (07:43)
[2018-08-21] MEDS ORDERED: MAGNESIUM SULFATE 1 GM/D5W 100 ML ONE (07:43)
[2018-08-21] MEDS ORDERED: CEFAZOLIN 1 GM INJ ONE (07:43)
[2018-08-21] MEDS ORDERED: DESFLURANE 15 MIN ONE (08:00)
[2018-08-21] MEDS ORDERED: KETAMINE (50 MG/ML) 10 ML VIAL ONE (08:02)
[2018-08-21] MEDS ORDERED: PHENYLephrine (100 MCG/ML) 10ML SYG ONE (08:32)
[2018-08-21] MEDS ORDERED: EPHEDrine 25 MG/5 ML SYG ONE (08:32)
[2018-08-21] MEDS ORDERED: ROCURONIUM 50 MG INJ ONE (08:45)
[2018-08-21] MEDS ORDERED: SUGAMMADEX SODIUM 200 MG/2 ML VIAL IV ONE (08:48)
[2018-08-21] MEDS ORDERED: ROPIVACAINE 0.5 % 30 ML VIAL ONE (09:46)
--- NOTE | 2018-08-21 10:21 | SIPON ---
Date/Time of Note Date/Time of Note DATE: 08/21/18 TIME: 10:12 Operative Report Preoperative Diagnosis uterine fibroids menorrhagia Postoperative Diagnosis see pathology same as above Operation/Procedure Performed WALDEMAR bilateral fimbriectomy Surgeon see signature line classroom assistant Rejuanita Anesthesia: general, other (TAp) Estimated blood loss: 150 - 200 ml's Transfusion Required none Specimen WALDEMAR bilateral fimbriectomy Grafts/Implants none Complications none KING JULES MD Aug 21, 2018 10:21
--- NOTE | 2018-08-21 10:27 | PAC ---
Date/Time of Note Date/Time of Note DATE: 08/21/18 TIME: 10:26 Post-Anesthesia Notes Post-Anesthesia Note Last documented vital signs Vital Signs Date Temp Pulse Resp B/P (MAP) Pulse Ox O2 O2 Flow FiO2 Time Delivery Rate 08/21/18 98.0 98 108 16 112/58 100 6L face 10:13 100 mask 8 08/21/18 70 18 119/64 98 Room Air 07:14 (82) Activity: WNL Respiratory function: WNL Cardiovascular function: WNL Mental status: Baseline Pain reasonably controlled: Yes Hydration appropriate: Yes Nausea/Vomiting absent: Yes BETHANY HAHN Aug 21, 2018 10:27
[2018-08-21] MEDS: HYDROmorphONE 0.2 MG/ML PCA IV SCH (11:06)
[2018-08-21] MEDS: LACTATED RINGER'S 1,000 ML IV SCH ×3 (12:00→22:40)
[2018-08-21] MEDS ORDERED: HYDROCODONE/APAP (5/325) TAB NGT PRN (12:00)
[2018-08-21] MEDS: IBUPROFEN 600 MG TAB PO SCH ×3 (13:07→23:11)
[2018-08-21] MEDS ORDERED: CEFAZOLIN 2 GM/50 ML (PMX) 50 ML IVPB SCH (16:00)
[2018-08-21] MEDS ORDERED: LACTATED RINGER'S 1,000 ML IV SCH (18:16)
[2018-08-21] MEDS ORDERED: IBUPROFEN 600 MG TAB PO SCH (18:30)
[2018-08-21] MEDS ORDERED: ACETAMINOPHEN 325 MG TAB PO PRN (18:30)
[2018-08-21] MEDS: CEFAZOLIN 2 GM/50 ML (PMX) 50 ML IVPB SCH (22:39)
[2018-08-22 01:04] VITALS: BP 110/65; RESP 19
[2018-08-22 03:42] VITALS: BP 96/58; PULSE 73; RESP 18
[2018-08-22] MEDS: CEFAZOLIN 2 GM/50 ML (PMX) 50 ML IVPB SCH ×2 (05:17→14:18)
[2018-08-22] MEDS: IBUPROFEN 600 MG TAB PO SCH ×3 (05:18→18:16)
[2018-08-22] MEDS: LACTATED RINGER'S 1,000 ML IV SCH ×3 (05:18→23:19)
[2018-08-22 05:24] VITALS: BP 100/68; RESP 20
[2018-08-22 07:46] VITALS: BP 99/56; PULSE 65; RESP 18
[2018-08-22 14:00] VITALS: BP 99/58; PULSE 87; RESP 18
[2018-08-22 19:17] VITALS: BP 131/68; PULSE 89; RESP 18
[2018-08-22] MEDS: HYDROmorphONE 0.2 MG/ML PCA IV SCH (21:09)
--- NOTE | 2018-08-22 22:04 | PN ---
Date/Time of Note Date/Time of Note DATE: 08/22/18 TIME: 22:01 Assessment/Plan Lines/Catheters IV Catheter Type (from Nrsg): Peripheral IV Ayala in Place (from Nrsg): Yes Assessment/Plan Chief Complaint/Hosp Course stable s/p WALDEMAR and bilateral fimbriectomy Assessment/Plan as ordered Subjective 24 Hr Interval Summary passing flatus no bowel movement yet ambulating well pain tolerable Constitutional: ambulates Feeding: advancing diet Pain Control: well controlled Exam/Review of Systems Vital Signs Vitals Vital Signs Date Temp Pulse Resp B/P (MAP) Pulse Ox O2 O2 Flow FiO2 Time Delivery Rate 08/22/18 20 21:09 08/22/18 98.2 89 131/68 100 19:17 (89) 08/22/18 Room Air 05:24 Intake and Output 08/21/18 08/21/18 08/22/18 1515:00 23:00 07:00 IntakeIntake Total 1700 ml 1100 ml 1940 ml OutputOutput Total 500 ml 2900 ml BalanceBalance 1200 ml 1100 ml -960 ml Exam Constitutional: alert, oriented, well developed Psych: no complaints, nl mood/affect Head: normocephalic, atraumatic Eyes: nl conjunctiva, EOMI, nl lids, nl sclera ENMT: nl external ears & nose, nl lips & teeth, nl nasal mucosa & septum, mucos a pink and moist Neck: supple, non-tender Respiratory: clear to auscultation, normal air movement Cardiovascular: regular rate and rhythm, nl pulses Gastrointestinal: soft, nl liver, spleen, non-tender Musculoskeletal: nl extremities to inspection, nl gait and stance Extremities: normal pulses Neurological: PORCELAIN TURNER II-XII intact, nl mental status, nl speech, nl strength Skin: nl turgor, rash or lesions Lymph: nl lymph nodes Results Result Diagram: 08/22/18 0442 08/22/18 044 KING JULES MD August 22, 2018 22:04
[2018-08-23] MEDS: IBUPROFEN 600 MG TAB PO SCH ×4 (00:15→19:02)
--- NOTE | 2018-08-23 00:49 | OPR ---
DATE OF OPERATION: 08/21/2018 PREOPERATIVE DIAGNOSIS: 1. Uterine fibroid. 2. Menorrhagia. 3. Dyspareunia. POSTOPERATIVE DIAGNOSES 1. Uterine fibroid. 2. Menorrhagia. 3. Dyspareunia. See pathological report. OPERATION PERFORMED: Total abdominal hysterectomy, bilateral fimbriectomy and vaginal vault suspensi on. SURGEON: Cassi López MD RECLAMATION ENGINEER: Erik Trujillo MD ESTIMATED BLOOD LOSS: Less than 200 mL. POSTOP URINE OUTPUT: 400 mL, clear. ANESTHESIOLOGIST: ____. FINAL SPONGE COUNT: Correct. DESCRIPTION OF PROCEDURE: Under the proper induction of general anesthesia, the patient was placed i n the frog position. Ayala catheter was introduced into bladder under sterile condition and vaginal prep was done, repositioned to supine, abdominal wall was prepped and draped in usual aseptic manner. A Pfannenstiel incision was made. Incision was carried down to the subcutaneous tissue to the ante rior recti fascia, which was incised transversely in length of the incision. Fascial flap was create d by blunt and sharp dissection of tendinous attachment, and the 2 rectus muscles split and peritonea l cavity was entered. The uterus and ovaries were exposed. Uterus appeared to be approximately 10 w eeks of gestational size, firm in consistency, have multiple fibroid from 1 cm to 3 cm on subserosal fibroid noted. The surface was irregular. Both ovaries and tubes appeared to be normal and especial ly left ovary has some of ovulation evidence. The patient was placed in the Trendelenburg position. OC retractor was introduced and bowel was packed away from the operative field. Fundus was held wit h Renita forceps and both cornua were held with Pean forceps. The right round ligament was clamped an d cut, ligated with #1 chromic catgut suture left long and the anterior leaf of the broad ligament wa s incised inferomedially toward the cervical vaginal fold. The broad ligament was windowed and the p roximal portion of utero-ovarian ligament and fallopian tube were clamped and cut, ligated with #1 ch romic catgut. Bladder flap was created. Bladder was pushed down from the cervix. Same procedure wa s done on the left side. Left round ligament was clamped and cut, ligated with #1 chromic catgut, orellana ture was left long and the anterior leaf of the broad ligament was incised inferomedially toward the midline and met the other side of the flap and the bladder was pushed down further. The broad ligame nt on the left side was windowed and the proximal portion of utero-ovarian ligament and fallopian tub e were clamped and cut, ligated with #1 chromic catgut. Then, skeletonization of the uterine vessel was done and uterine vessel was clamped and cut, ligated with #1 chromic catgut. Further dissection of the bladder further down and the upper margin of the cardinal ligament was clamped and cut, ligate d with multiple bite. The uterosacral ligament on each side was clamped and cut, ligated with #1 chr omic catgut and suture was left long to indicate further procedure. After reaching the cervical vagi nal fold and anterior vaginal wall was entered with a scalpel and through this incision site, the Hector genson scissors was introduced, entire uterus and cervix was removed from the surgical field. As we make a circular incision, the vaginal vault was held with multiple Sheeba clamps. Specimen was remov ed from the operative field. The angle hemostatic ligature was done in each side using #1 chromic ca tgut and suture was held and the rest of vaginal vault was closed with multiple [id number] suzy r. Posteriorly, the peritoneum was closed with 2-0 chromic catgut and GI needle and attached to the vaginal vault to close the space. The round ligament on the uterosacral ligament, the suture wa s left long, was tied and the vaginal vault was suspended. Same procedure was done on the contralate ral side. All the encountered bleeders were controlled and the reperitonealization was done using 2- 0 chromic catgut. At this point, we decided to do the fimbria and removed because of the prevention of further possibility of ovarian cancer development. So, right side of fimbria was clamped with Pea n. The pedicle was closed with #1 chromic catgut. Same procedure was done on the left fimbria, whic h was removed, and the pedicle was closed with #1 chromic catgut. After the irrigation was done with water for the detecting any bleeder, which was intact. The piece of Surgicel was introduced under t he bladder and a 2-piece of Interceed was used to cover the ovary to prevent the further adhesion. A ll the sponge was removed. The lap count was correct and the OC retractor was removed. Parietal per itoneum was closed using 0 chromic catgut in continuous manner, muscle closed with 0 chromic catgut i n continuous manner. Fascia closed with a #1 Vicryl in continuous intermittent interlocking manner i n 2 segments. Subcutaneous tissue irrigated with water. This layer was approximated with a 2-0 plai n in continuous manner after adequate hemostasis was secured. Skin closed with a 4-0 Monocryl in sub cuticular manner. Steri-Strip applied. Pressure dressing applied. Estimated blood loss approximate ly 200 mL. The urine output, approximately 400 mL, with a clear urine. Procedure was completed. Th e patient was sent to the recovery room in stable condition. Dictated By: CASSI WARD/RISHI Conf#: [id number] DID#: [id number]
[2018-08-23 01:16] VITALS: BP 101/56; PULSE 71; RESP 18
[2018-08-23] MEDS: LACTATED RINGER'S 1,000 ML IV SCH ×2 (06:51→16:05)
[2018-08-23 07:30] VITALS: BP 107/72; PULSE 80; RESP 18
[2018-08-23 14:31] VITALS: BP 93/59; PULSE 81; RESP 17
[2018-08-23 19:45] VITALS: BP 120/73; PULSE 70; RESP 18
--- NOTE | 2018-08-23 23:57 | QN ---
Documentation Comment no BM yet ambulating well VSS afebrile abdomen soft wound dry calf neg for tenderness no vaginal bleeding A satisf post WALDEMAR bilateral fimbriectomy P discharge home in am KING JULES MD August 23, 2018 23:57
[2018-08-24] MEDS: IBUPROFEN 600 MG TAB PO SCH ×4 (00:12→18:20)
[2018-08-24 02:40] VITALS: BP 108/69; PULSE 74; RESP 18
[2018-08-24] MEDS: LACTATED RINGER'S 1,000 ML IV SCH (04:00)
[2018-08-24 09:06] VITALS: BP 119/68; PULSE 72; RESP 19
--- NOTE | 2018-08-24 11:50 | DS ---
Date/Time of Note Date/Time of Note DATE: 08/24/18 TIME: 11:36 Discharge Summary Admission/Discharge Info Admit Date/Time Aug 21, 2018 at 05:31 Discharge Date/Time august noon Discharge Diagnosis uterine fibroid adenomyosis Patient Condition: Stable Consults none Procedures total abdominal hysterectomy bilateral fimbriectomy vaginal vault suspension Hx of Present Illness 43y.o premenopausal women has been suffering from heavy prolong menstrual flow despite of endometrial ablation which was done 5yrs ago known to have multiple fibroids which has been causing painful intercourse' Hospital Course underwent WALDEMAR BS on 08/21/18 postoperatively had unevenful course, ambulating well and tolerating diet well pathologic report reviewed which is comparable with gross exam. will be discharge today and f/u in 2weeks at my office with routine instructions Home Meds Discontinued Scripts Acetamin/Butalbital/Caffeine* (Fioricet*) [id number] Tab, 1 TAB PO Q6H PRN for PAIN, #30 TAB Prov:MEDINA HOLLAND PA-C 01/09/18 Ibuprofen* (Motrin*) 600 Mg Tab, 600 MG PO Q6, #30 TAB Prov:RANJIT DEL VALLE PA-C 07/31/17 Tramadol HCl (Tramadol HCl) 50 Mg Tablet, 50 MG PO Q4 PRN for PAIN, #10 TAB Prov:SANTOS LU PA-C 07/04/16 Hydrocodone/Acetaminophen ([place] 5-325 Tablet) 1 Each Tablet, 1 TAB PO Q6H PRN for PAIN, #20 TAB Prov:THOMAS MOORE PA-C 05/14/16 Sulfamethoxazole-Trimethoprim* (Bactrim* DS) 800-160 Mg Tab, 1 TAB PO BID for 7 Days, TAB Prov:RANJIT DEL VALLE PA-C 05/12/16 Cephalexin* (Keflex*) 500 Mg Capsule, 500 MG PO QID for 7 Days, CAP Prov:RANJIT DEL VALLE PA-C 05/12/16 Ibuprofen* (Motrin*) 600 Mg Tab, 600 MG PO Q6, #30 TAB Prov:RANJIT DEL VALLE PA-C 05/12/16 Promethazine HCl/Codeine (Prometh-Codein 6.25-10 mg/5 ml) 5 Ml Syrup, 5 ML PO Q8, #8 OZ Prov:VIVIANE LIEBERMAN DO 04/15/16 Phenol* (Chloraseptic* [place]) 177 Ml [place].pump, 2 SPRAY MT Q2H PRN for SORE THROAT, #1 BOTTLE Prov:VIVIANE LIEBERMAN DO 04/15/16 Naproxen* (Naprosyn*) 500 Mg Tablet, 500 MG PO BID PRN for PAIN AND/OR INFLAMMATION, #15 TAB Prov:VIVIANE LIEBERMAN DO 04/15/16 Tramadol HCl (Tramadol HCl) 50 Mg Tablet, 50 MG PO Q4 PRN for PAIN, #20 TAB Prov:DOMINICK COLMENARES MD 11/23/15 Ibuprofen* (Motrin*) 600 Mg Tab, 600 MG PO Q6, #20 TAB Prov:DOMINICK COLMENARES MD 11/23/15 Azithromycin* (Zithromax*) 250 Mg Tablet, 250 MG PO .TomekaPACK DIRECTED, #6 TAB TAKE 500 MG (2 TABS) THE FIRST DAY THEN 250 MG (1 TAB) DAYS 2-5 Prov:SANTOS LU PA-C 09/25/15 Hydrocodone Bit-Acetaminophen* ([place]*) 5-325 Mg Tab, 1 TAB PO Q6 PRN for PAIN, #10 TAB Prov:SANTOS LU PA-C 09/25/15 Hydrocodone Bit-Acetaminophen* ([place]*) 7.5-325 Tablet, 1 TAB PO Q4H PRN for PAIN, #20 TAB Prov:KERI GARCIASTMICAELAS A. DO 09/22/15 Ranitidine Hcl* (Zantac*) 150 Mg Tablet, 150 MG PO BID PRN for EPIGASTRIC PAIN, #30 TAB Prov:KERI GARCIASTOLOS A. DO 09/22/15 Dicyclomine Hcl* (Bentyl*) 20 Mg Tablet, 20 MG PO QID, #30 TAB Prov:KERI GARCIASTOLOS A. DO 09/22/15 Ciprofloxacin Hcl* (Ciprofloxacin Hcl*) 500 Mg Tablet, 500 MG PO BID for 7 Days, TAB Prov:MEDINA HOLLAND PA-C 03/27/15 Triamcinolone Acetonide (Triamcinolone Acetonide) 0.1% - 15 Gm Cream.gm., 1 APPLIC TOP TID for 7 Days, TUB Prov:DOMINICK COLMENARES MD 01/01/15 Acyclovir* (Zovirax*) 800 Mg Tablet, 800 MG PO TID for 7 Days, TAB Prov:DOMINICK COLMENARES MD 01/01/15 Acetaminophen-Codeine* (Acetaminophen-Cod #3*) 300-30 Mg Tab, 1 TAB PO Q4H PRN for PAIN, #14 TAB Prov:DOMINICK COLMENARES MD 01/01/15 Follow-up Plan 2w Primary Care Provider Care Physician No Primary Time spent on discharge: < 30 minutes Pending Labs none KING JULES MD August 24, 2018 11:50
[2018-08-24 14:26] VITALS: BP 114/65; PULSE 74; RESP 18
[2018-08-24 19:25] VITALS: BP 105/69; PULSE 93; RESP 18
--- NOTE | 2018-08-24 19:59 | PD.PPDC ---
PRE SALES ARCHITECT Discharge Instruction Diagnosis [id number] Final Diagnosis: [id number] s/p uterine fibroid Condition [id number] Patient Condition: [id number] Stable Diet [id number] Diet: Eyefr3n Resume Regular Diet Activity/Restrictions [id number] Activity: Rcucw0w Normal Activity Bedrest May be up to bathroom May be up for meals May Shower [id number] Restrictions: [id number] No Exercising No Lifting Minimize Stair-climbing Nothing in the Vagina No Keddie No Tampons, douche Wound/Drain Care Instructions [id number] Wound/Drain Care Instructions: Uhbbb7s Wash with soap and water Keep clean and dry Follow-up Follow-up with Physician: 2, Week/Weeks Return to clinic for [id number] LIBRARY MEDIA ASSISTANT Instructions: Dxwvv1d Fever greater than 101 Chills Worsening abdominal pain Excessive Vaginal Bleeding More than 2 pads per hour Unable to tolerate diet Lcupx5De Surgical Instructions: Tdexl5c Incisional Drainage Incisional Redness KING JULES MD August 24, 2018 19:59
== END 2018-08-24 20:30 | disposition still patient (30) | DRG 743 ==
LOC: REC 05:31 → EDSTATUS 07:00 → MS1 12:35
PROVIDERS: ADMIT Obstetrics & Gynecology; ATTEND Obstetrics & Gynecology
PROC: 0UB70ZZ Excision of Bilateral Fallopian Tubes, Open Approach (ICD-10-PCS; 2018-08-21)
PROC: 0USG0ZZ Reposition Vagina, Open Approach (ICD-10-PCS; 2018-08-21)
PROC: 0UT90ZZ Resection of Uterus, Open Approach (ICD-10-PCS; principal; 2018-08-21 07:30)
DX: D25.9 Leiomyoma of uterus, unspecified (principal); N80.0 Endometriosis of uterus; N92.0 Excessive and frequent menstruation with regular cycle; N94.10 Unspecified dyspareunia
CPT/HCPCS: 80048; 81001; 84703; 85025; 86850; 86900; 86901; 86920; 87086; 88305; 88307; J0690; J1100; J1170; J2175; J2250; J2370; J2405; J2795; J3010; J3475; J7120